=== PATIENT | male | born 1950 | race Caucasian/White ===

== ENCOUNTER 2017-03-15 11:43 | Emergency (ER) | payer MEDICARE, OTHER ==
[2017-03-15 12:12] LABS: BASOPHILS % 0.8 (0.0-1.5); EOSINOPHILS % 3.6 % (0.0-6.8); MEAN CORPUSCULAR HEMOGLOBIN 30.7 pg (28.0-34.0); MEAN CORPUSCULAR VOLUME 92.7 fl (80.0-100.0); MONOCYTES % 7.1 % (0.0-11.0); NEUTROPHILS # 6.7 # k/uL (1.4-7.7)
[2017-03-15 12:29] LABS: eGFR (African) > 60; eGFR (Non-African) > 60
[2017-03-15 13:19] VITALS: BP 120/80
--- NOTE | 2017-03-15 13:51 | ED Physician Documentation ---
Chest Pain - HISTORIAN Historian: patient - HPI Stated Complaint: chest complaint Chief Complaint: Chest Pain Timing: sudden onset Duration: other (lasted 5 minutes) Last known Well Date: 03/15/17 Last Known Well Time: 10:30 Last known Well Code/Unknown Code: Known Context: activity Severity: moderate Quality: tightness Chest Pain Radiation: back Chest Pain Signs/Symptoms: denies: nausea, vomiting, diaphoresis, cool extremities, dizziness, dyspnea, tachypnea, tachycardia, hypotension, palpitations, weakness, other Worsened By: nothing Relieved By: nothing Further Comments: yes (66 year old male patient presents with complaint of Chest pain which lasted 5 minutes this morning around [id number].) - ROS CONST: none MS/LYMPH: none GI/: none EYES/ENT: none SKIN/ENDO: none NEURO/PSYCH: anxiety - PAST HX [place] risk factors: hypertension, hyperlipidemia DVT/PE Risk Factors: none TAD/AAA risk factors: none Neuro deficit: none GI disease: GERD Lung disease: none Allergies/Adverse Reactions: Allergies Allergy/AdvReac Type Severity Reaction Status Date / Time duloxetine HCl Allergy Mild Verified 03/15/17 12:12 [From Cymbalta] Sulfa (Sulfonamide Allergy Mild Verified 03/15/17 12:12 Antibiotics) tramadol Allergy Verified 03/15/17 12:32 venlafaxine Allergy Verified 03/15/17 12:34 Home Medications: Ambulatory Orders Medication Instructions Recorded Famotidine [Pepcid] 20 mg PO DAILY 03/15/17 Fluticasone Propionate [Flonase] 50 mcg .ROUTE DAILY 03/15/17 Hydrocortisone 1% [Cortisone 1%] 0.1 mcg TOP DAILY 03/15/17 Lisinopril [Zestril] 10 mg PO DAILY 03/15/17 Loratadine [Claritin] 10 mg PO DAILY 03/15/17 Oxycodone HCl [Roxicodone] 10 mg PO TID 03/15/17 Pravastatin Sodium [Pravachol] 20 mg PO DAILY 03/15/17 Tamsulosin HCl [Flomax] 0.4 mg PO DAILY 03/15/17 - SOCIAL HX Smoking History: non-smoker - FAMILY HX Family HX: CAD over 55 - VITAL SIGNS Vital Signs: Vital Signs Temp Pulse Resp BP Pulse Ox 98.6 F 89 16 120/80 95 03/15/17 13:15 03/15/17 13:15 03/15/17 13:15 03/15/17 13:15 03/15/17 13:15 - REVIEWED ASSESSMENTS Nursing Assessment Reviewed: Yes Vitals Reviewed: Yes Progress - Progress Progress: Patient reports increased anxiety regarding close friend who is ill. Reviewed lab findings with patient, reassurance given, encouraged patient to see Dr Mcdonald for wellness visit and FLP. - EKG/XRAY/CT EKG: NSR (Rate 87, no acute changes) ED Results Lab/Radiology - Lab Results Lab Results: Lab Results 03/15/17 03/15/17 03/15/17 12:10 12:10 12:10 WBC 9.40 K/ul K/ul (4.00-12.00) RBC 4.97 M/ul M/ul (3.90-5.20) Hgb 15.3 g/dL g/dL (12.0-18.0) Hct 46.1 % % (37.0-53.0) MCV 92.7 fl fl (80.0-100.0) MCH 30.7 pg pg (28.0-34.0) MCHC 33.1 g/dL g/dL (30.0-36.0) RDW 13.6 % % (11.3-14.3) Plt Count 215 K/mm3 K/mm3 (130-400) Neut % (Auto) 71.3 % % (39.0-79.0) Lymph % (Auto) 15.9 % L % (16.0-50.0) [place] % (Auto) 7.1 % % (0.0-11.0) Eos % (Auto) 3.6 % % (0.0-6.8) Baso % (Auto) 0.8 (0.0-1.5) Neut # (Auto) 6.7 # k/uL # k/uL (1.4-7.7) Lymph # (Auto) 1.5 # k/uL # k/uL (0.6-4.0) [place] # (Auto) 0.7 # k/uL # k/uL (0.0-0.9) Eos # (Auto) 0.3 # k/uL # k/uL (0.0-0.6) Baso # (Auto) 0.1 # k/uL # k/uL (0.0-0.5) Reactive Lymphs % 1.2 % % (0.0-5.0) Reactive Lymphs # 0.1 # k/uL # k/uL (0.0-0.8) Sodium 140 mmol/L mmol/L (136-145) Potassium 4.1 mmol/L mmol/L (3.5-5.0) Chloride 106 mmol/L mmol/L (98-110) Carbon Dioxide 30 mmol/L mmol/L (20-32) BUN 22 mg/dL mg/dL (10-26) Creatinine 0.9 mg/dL mg/dL (0.4-1.5) Estimated Creat Clear 173 Est GFR ( Amer) > 60 (60 - ) Est GFR (Non-Af Amer) > 60 (60 - ) Glucose 103 mg/dL H mg/dL (70-99) Calcium 9.6 mg/dL mg/dL (8.5-10.5) Total Bilirubin 1.0 mg/dL mg/dL (0.2-1.2) AST 20 U/L U/L (0-41) ALT 24 U/L U/L (0-45) Alkaline Phosphatase 75 U/L U/L (46-116) Creatine Kinase 127 U/L U/L (0-225) CK-MB (CK-2) 4.5 ng/mL ng/mL (0.0-5.6) Troponin I < 0.03 ng/mL L ng/mL (0.03-0.06) Total Protein 6.3 g/dL g/dL (6.0-8.5) Albumin 4.1 g/dL g/dL (3.0-5.5) - Orders Orders: ED Orders Category Date Time Status Continuous EKG monitoring Q30M Care 03/15/17 11:58 Active Continuous Pulse Oximetry Q30M Care 03/15/17 11:[address] IV Lock 1T Care 03/15/17 11:58 Active CBC/PLATELET/DIFF Stat Lab 03/15/17 12:10 Completed CKMB Stat Lab 03/15/17 12:10 Completed CMP Stat Lab 03/15/17 12:10 Completed CREATINE KINASE Stat Lab 03/15/17 12:10 Completed TROPONIN I (cTnI) Stat Lab 03/15/17 12:10 Completed EKG WITH COMPARISON Stat Ther 03/15/17 12:06 Completed Chest Pain Physical Exam - EXAM General Appearance: anxious EENT: eye inspection normal, ENT inspection normal, pharynx normal, no signs of dehydration, ROSEY, no nystagmus, TM's nml Respiratory: no resp. distress, chest non-tender, nml breath sounds CVS: reg. rate & rhythm, no murmur, no gallop, no friction rub, pulses full, pulses equal Abdomen: soft, no organomegaly, normal bowel sounds, no abdominal bruit, no distension Skin: normal color, warm/dry, NR, INT, DR Extremities: non-tender, normal range of motion, no evidence of injury, no edema , J, PUBLICATION SPECIALIST Neuro: oriented X3, CN's nml as tested, motor nml, sensation nml, mood/affect nml Discharge Clincal Impression: Anxiety Referrals: Primary Doctor,No [Primary Care Provider] - 2 Days Additional Instructions: Rest Return to Er if you have chest pain with shortness of breath, diaphoresis, nausea and/or radiation to the jaws and arms. Follow up with Dr Mcdonald next week for a wellness exam. Home Medications: Ambulatory Orders Famotidine [Pepcid] 20 mg PO DAILY 03/15/17 Fluticasone Propionate [Flonase] 50 mcg .ROUTE DAILY 03/15/17 Hydrocortisone 1% [Cortisone 1%] 0.1 mcg TOP DAILY 03/15/17 Lisinopril [Zestril] 10 mg PO DAILY 03/15/17 Loratadine [Claritin] 10 mg PO DAILY 03/15/17 Oxycodone HCl [Roxicodone] 10 mg PO TID 03/15/17 Pravastatin Sodium [Pravachol] 20 mg PO DAILY 03/15/17 Tamsulosin HCl [Flomax] 0.4 mg PO DAILY 03/15/17 Condition: Stable Disposition: 01 HOME, SELF-CARE Decision to Admit: NO Decision Time: 13:00
== END 2017-03-15 13:15 | disposition home or self-care (01) ==
LOC: ED 11:43
DX: F41.9 Anxiety disorder, unspecified (principal)
CPT/HCPCS: 80053; 82550; 82553; 84484; 85025; 99283; S1016